=== PATIENT | male | born 1935 | race Caucasian/White ===

== ENCOUNTER → 2019-03-10 12:25 | Outpatient (CLI) | payer OTHER, SELFPAY | PROVIDERS: Family Provider Family Medicine; PCP Family Medicine; Referring Provider Dermatology Pediatric Dermatology; Visit Provider Dermatology Pediatric Dermatology | DX: L08.9 Local infection of the skin and subcutaneous tissue, unspecified (principal); L90.8 Other atrophic disorders of skin; L30.8 Other specified dermatitis; S00.00XA Unspecified superficial injury of scalp, initial encounter; S20.409A Unspecified superficial injuries of unspecified back wall of thorax, initial encounter; L02.416 Cutaneous abscess of left lower limb; L03.116 Cellulitis of left lower limb | CPT/HCPCS: 87070; 87077; 87186; 87205 ==